=== PATIENT | female | born 1990 | race Caucasian/White ===

== ENCOUNTER 2021-01-05 01:02 | Emergency (ER) | payer OTHER ==
[2021-01-05] MEDS ORDERED: NORCO 5-325 TA1 EACH PO (01:35)
== END 2021-01-05 01:53 | disposition home or self-care (01) ==
LOC: FER 01:02
DX: S90.31XA Contusion of right foot, initial encounter (principal); F17.210 Nicotine dependence, cigarettes, uncomplicated; W20.8XXA Other cause of strike by thrown, projected or falling object, initial encounter; Y92.009 Unspecified place in unspecified non-institutional (private) residence as the place of occurrence of the external cause
CPT/HCPCS: 73630